=== PATIENT | female | born 1945 | race Caucasian/White ===

== ENCOUNTER → 2020-11-12 | Outpatient (CLI) | payer BC | LOC: KOH-I 08:53 | DX: S92.351A Displaced fracture of fifth metatarsal bone, right foot, initial encounter for closed fracture (principal) | CPT/HCPCS: 73630 ==

== ENCOUNTER → 2020-11-26 | Outpatient (CLI) | payer BC | LOC: KOH-I 10:34 | DX: S82.51XA Displaced fracture of medial malleolus of right tibia, initial encounter for closed fracture (principal); S92.351A Displaced fracture of fifth metatarsal bone, right foot, initial encounter for closed fracture | CPT/HCPCS: 73610; 73630 ==

== ENCOUNTER → 2020-12-17 | Outpatient (CLI) | payer BC | LOC: KOH-I 10:38 | DX: S92.351A Displaced fracture of fifth metatarsal bone, right foot, initial encounter for closed fracture (principal) | CPT/HCPCS: 73630 ==